=== PATIENT | male | born 1995 | race Caucasian/White ===

== ENCOUNTER 2018-09-20 18:06 | Emergency (ER) | payer SELFPAY ==
[~2018-09-20] VITALS: Ht 190.5 cm; Wt 90.9 kg
[2018-09-20 18:16] VITALS: BP 110/72
[2018-09-20] MEDS ORDERED: ibuprofen tablet 400 MG TABLET PO ONE (19:00)
== END 2018-09-20 19:37 | disposition home or self-care (01) ==
LOC: ER 18:07
DX: S50.01XA Contusion of right elbow, initial encounter (principal); V00.131A Fall from skateboard, initial encounter; Y93.51 Activity, roller skating (inline) and skateboarding; Y92.89 Other specified places as the place of occurrence of the external cause; Y99.9 Unspecified external cause status
CPT/HCPCS: 73080; 99283